=== PATIENT | female | born 1945 | race Caucasian/White ===

== ENCOUNTER 2020-05-01 07:22 | Inpatient (IN) ==
[~2020-05-01 07:22] MED LIST: Famotidine IV 10 MG/ML 2 ml VIAL (20 mg) IV SLOW PU ONE; Famotidine IV 10 MG/ML 2 ml VIAL (20 mg) ONE; Lactated Ringers 1000 ml BAG 1,000 ML IV SCH; ceFAZolin 2 GM PREMIX in ORs 2 GM/50 ML BAG ONE
[2020-05-01] MEDS ORDERED: fentaNYL 100 mcg/2 ml 50 MCG/ML VIAL ONE ×2 (07:45→09:18)
[2020-05-01] MEDS ORDERED: Bupivacaine 0.5% SDV PF 30ML VIAL ONE ×3 (07:50→09:22)
[2020-05-01] MEDS ORDERED: ROPIVACAINE 5 MG/ML 30 ML BTL (0.5%) ONE ×2 (09:01→10:55)
[2020-05-01] MEDS ORDERED: Lidocaine 2% PF 5 ML VIAL ONE (09:02)
[2020-05-01] MEDS ORDERED: Midazolam 2 mg/2 ml VIAL 1 mg/ml 2 ml VIAL (2 mg) ONE (09:18)
[2020-05-01] MEDS ORDERED: Phenylephrine 40 mcg/mL 10mL (400mcg) SYRINGE ONE (09:20)
[2020-05-01] MEDS ORDERED: EPHEDrine (Pressors) 50 MG/ML VIAL ONE (09:20)
[2020-05-01] MEDS ORDERED: Propofol 10 MG/ML 20 ML BTL ONE (09:32)
[2020-05-01] MEDS ORDERED: Ondansetron 4 mg VIAL 2 MG/ML 2 ml VIAL ONE (10:09)
[2020-05-01] MEDS ORDERED: Dexamethasone IV 4 MG/ML VIAL 1 ml VIAL ONE (10:09)
[2020-05-01] MEDS ORDERED: Ondansetron ODT 4 mg TAB 4 MG TAB PO PRN (11:38)
[2020-05-01] MEDS ORDERED: Morphine 2 MG/ML SYRINGE IV PRN (11:38)
[2020-05-01] MEDS ORDERED: diPHENhydraMINE IV 50 MG/ML 1 ml VIAL (BENADRYL) IV PRN (11:38)
[2020-05-01] MEDS ORDERED: Ondansetron 4 mg VIAL 2 MG/ML 2 ml VIAL IV PRN ×2 (11:38→12:25)
[2020-05-01] MEDS ORDERED: Magnesium Hydroxide LIQ 30 ML UDC PO PRN (11:38)
[2020-05-01] MEDS ORDERED: Lactulose 30 ml UDC PO PRN (11:38)
[2020-05-01] MEDS ORDERED: diPHENhydraMINE 25 mg TAB PO PRN (11:38)
[2020-05-01] MEDS ORDERED: Naloxone 0.4 mg VIAL 0.4 mg/ml 1 ml VIAL IV PRN (12:25)
[2020-05-01] MEDS: Lactated Ringers 1000 ml BAG 1,000 ML IV SCH ×2 (13:10→23:33)
[2020-05-01] MEDS: ceFAZolin 1 GM ADVAN(*) 1 GM in NS 0.9% 50 ML 50 ML IVPB SCH (17:53)
[2020-05-01] MEDS: Magnesium Hydroxide LIQ 30 ML UDC PO SCH (20:40)
[2020-05-01] MEDS: CARBAMAZEPINE 200 MG PO SCH (20:41)
[2020-05-02] MEDS ORDERED: Lactated Ringers 1000 ml BAG 1,000 ML IV ONE (01:00)
[2020-05-02] MEDS: Lactated Ringers 1000 ml BAG 1,000 ML IV SCH (01:14)
[2020-05-02] MEDS: ceFAZolin 1 GM ADVAN(*) 1 GM in NS 0.9% 50 ML 50 ML IVPB SCH ×2 (01:15→09:50)
[2020-05-02 01:35] LABS: ABS Eosinophils 0.1 10^3/ul (0-0.6); ABS Lymphocytes 1.5 10^3/ul (1.0-4.8); ABS Monocytes 0.4 10^3/ul (0-0.8); Hematocrit 27 % (35-47); Hemoglobin 9.1 g/dL (12.0-16.0); Lymphocyte % 24.7 %; Mean Corpuscular HGB Conc 34 g/dL (31-36); Mean Corpuscular Hemoglobin 30 pg (27-31); Mean Corpuscular Volume 88 fL (80-97); Mean Platelet Volume 7.4 fL (7.4-10.4); Platelet Count 242 10^3/uL (150-450); Red Blood Count 3.08 10^6 /uL (3.70-4.87); Red Cell Distribution Width 14 % (10-15); White Blood Count 5.9 10^3/uL (3.5-10.8)
[2020-05-02 02:00] LABS: Calcium 8.1 mg/dL (8.6-10.3); EGFR African American 96.3 (>60); EGFR Non-African American 79.6 (>60); Potassium 3.9 mmol/L (3.5-5.0)
[2020-05-02 05:50] LABS: Hematocrit 28 % (35-47); Hemoglobin 9.4 g/dL (12.0-16.0); Mean Platelet Volume 7.2 fL (7.4-10.4); Platelet Count 248 10^3/uL (150-450)
[2020-05-02 06:25] LABS: BUN/Creatinine Ratio 22.2 (8-20); EGFR African American 112.4 (>60); EGFR Non-African American 92.9 (>60)
[2020-05-02] MEDS: Magnesium Hydroxide LIQ 30 ML UDC PO SCH ×2 (08:37→20:45)
[2020-05-02] MEDS: Vitamin THERAPEUTIC TAB PO SCH (08:38)
[2020-05-02] MEDS: Enoxaparin 40 MG/0.4 ML SYR(*) SUBCUT SCH (08:39)
[2020-05-02] MEDS: CARBAMAZEPINE 200 MG PO SCH ×2 (08:47→20:47)
[2020-05-03 06:38] LABS: Hematocrit 27 % (35-47); Hemoglobin 9.5 g/dL (12.0-16.0); Mean Platelet Volume 7.8 fL (7.4-10.4); Platelet Count 233 10^3/uL (150-450)
[2020-05-03] MEDS: Vitamin THERAPEUTIC TAB PO SCH (08:45)
[2020-05-03] MEDS: CARBAMAZEPINE 200 MG PO SCH (08:45)
[2020-05-03] MEDS: Enoxaparin 40 MG/0.4 ML SYR(*) SUBCUT SCH (08:46)
[2020-05-03] MEDS: Magnesium Hydroxide LIQ 30 ML UDC PO SCH (08:55)
[2020-05-03 12:28] VITALS: BP 123/64
== END 2020-05-03 15:45 | disposition home or self-care (01) | DRG 302 ==
LOC: SSU 07:22 → OR 07:22
PROVIDERS: ADMIT Orthopaedic Surgery Adult Reconstructive Orthopaedic Surgery; ATTEND Orthopaedic Surgery Adult Reconstructive Orthopaedic Surgery